=== PATIENT | female | born 1970 | race Caucasian/White ===

== ENCOUNTER 2017-01-09 22:06 | Emergency (ER) | payer OTHER ==
[~2017-01-09] VITALS: Ht 170.2 cm; Wt 93.0 kg
[~2017-01-09 22:06] MED LIST: GABA100C4 PO; HYDR-3111 PO; NAPR500 PO; ZOFR4TAB3 PO
[2017-01-09 22:40] VITALS: BP 95/71; PULSE 70; RESP 18; TEMP 98.4; O2SAT 98
[2017-01-09 23:21] VITALS: BP 95/71; PULSE 70; RESP 18; TEMP 98.4; O2SAT 98
--- NOTE | 2017-01-09 23:39 | PD ---
HPI Chief Complaint: Pain: Acute or Chronic Time Seen by Provider: 23:38 Travel History International Travel<30 days: No Contact w/Intl Traveler<30days: No Traveled to known affect area: No History of Present Illness HPI 46-year-old female presents to the emergency department complaining of low back pain radiating into the right buttock and lower extremity. Patient also complains of urinary frequency urgency and dysuria. No fever no chills no nausea no vomiting no abdominal pain. Patient denies any lower extremity numbness tingling or weakness, denies bladder or bowel dysfunction, and denies saddle anesthesia. Patient denies any specific injury associated with her back pain referred pain to the buttock and lower extremity. Patient states symptoms of present for 2 months. Due to persistent symptoms and no improvement with ibuprofen and due to now associated dysuria decided to come to the emergency room for evaluation. Patient has not followed up with her primary care provider. Patient states approximately 8 months ago she did fall 5 feet off of a ladder and was not evaluated at that time. 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 Patient notes that movement and range of motion worsened symptoms and remaining still provided some symptomatic relief. [facility] Past Medical History Narrative Medical Gastroparesis migraines hysterectomy tubal ligation and D&C. Tobacco use nursing notes reviewed ADD: No Blood Disorders: No Cancer: No Cardiovascular Problems: No Cerebrovascular Accident: No Diabetes: No Diminished Hearing: No Endocrine: No Gastrointestinal Disorders: Yes (GASTROPARESIS) Glaucoma: No Genitourinary: No Hepatitis: No Hiatal Hernia: No Hypertension: No Immune Disorder: No Musculoskeletal: No Neurologic: No Psychiatric: No Reproductive: No Respiratory: No Immunizations Current: Yes Migraines: Yes Myocardial Infarction: No Renal Failure: No Seizures: No Thyroid Disease: No Ulcer: No Tetanus Vaccination: > 5 Years Influenza Vaccination: Yes ?: Not : 4 Para: 4 Dilation and Curettage (D&C): Yes Tubal Ligation: Yes Past Surgical History Abdominal Surgery: Yes AICD: No Cardiac Surgery: No Section: Yes Ear Surgery: No Endocrine Surgery: No Eye Surgery: No Genitourinary Surgery: Yes (BLADDER TUCK) Gynecologic Surgery: Yes ( d and c bladder tuck) Hysterectomy: Yes Joint Replacement: No Oral Surgery: No Pacemaker: No Thoracic Surgery: No Other Surgery: Yes Social History Alcohol Use: Yes (occ) Tobacco Use: No Substance Use: No Allergies-Medications (Allergen,Severity, Reaction): Coded Allergies: *MDRO Multi-Drug Resistant Organism (Unverified Adverse Reaction, Unknown , 01/09/17) MRSA Reported Meds & Prescriptions Reported Meds & Active Scripts Active Lortab (Hydrocodone-Acetaminophen) 5-325 Mg Tab 1 Tab PO Q6H PRN Cipro (Ciprofloxacin HCl) 500 Mg Tab 500 Mg PO BID 7 Days Robaxin (Methocarbamol) 750 Mg Tab 750 Mg PO Q6HR Ibuprofen 800 Mg Tab 800 Mg PO Q8H PRN Review of Systems Except as stated in HPI: all other systems reviewed are Neg General / Constitutional: No: Fever, Chills HENT: No: Congestion Cardiovascular: No: Chest Pain or Discomfort Gastrointestinal: No: Nausea, Vomiting, Abdominal Pain Genitourinary: Positive: Dysuria, Flank Pain Musculoskeletal: Positive: Myalgias, Arthralgias, Pain Skin: No Rash Neurologic: No: Weakness, Dizziness, Paresthesia, Incontinence Psychiatric: No: Anxiety Endocrine: No: Heat Intolerance Hematologic/Lymphatic: No: Easy Bruising Physical Exam Narrative GENERAL: Well-developed well-nourished female in no acute distress no respiratory distress SKIN: Warm and dry. HEAD: Normocephalic. EYES: No scleral icterus. No injection or drainage. NECK: Supple, trachea midline. No JVD or lymphadenopathy. CARDIOVASCULAR: Regular rate and rhythm without murmurs, gallops, or rubs. RESPIRATORY: Breath sounds equal bilaterally. No accessory muscle use. GASTROINTESTINAL: Abdomen soft, non-tender, nondistended. MUSCULOSKELETAL: No cyanosis, or edema. BACK: Nontender without obvious deformity. Tender to palpation over the right SI joint reproduces pain of presentation. DTRs 2+ and symmetric. Sensory exam intact. Motor strength 5 over 5 bilateral lower extremities. Pain is noted with straight leg raising right greater than left. No CVA tenderness. Data Data Last Documented VS Vital Signs Date Time Temp Pulse Resp B/P Pulse Ox O2 Delivery O2 Flow Rate FiO2 01/10/17 02:45 70 18 107/58 98 01/10/17 01:49 Room Air 01/09/17 23:21 98.4 Orders Spine, Lumbar - Ltd (Ap & Lat) (01/09/17 ) Urinalysis - C+S If Indicated (01/09/17 23:38) Dexamethasone Inj (Decadron Inj) (01/09/17 23:45) Orphenadrine Inj (Norflex Inj) (01/09/17 23:45) Urine Culture (01/10/17 00:00) ^ Saline Lock (01/10/17 01:22) Sodium Chlor 0.9% 1000 Ml Inj (Ns 1000 M (01/10/17 01:30) Ceftriaxone Inj (Rocephin Inj) (01/10/17 01:30) Labs Laboratory Tests Test 01/10/17 00:00 Urine Collection Type CLEAN CATCH Urine Color YELLOW Urine Turbidity CLEAR Urine pH 5.0 Urine Specific [place] 1.016 Urine Protein NEG mg/dL Urine Glucose (UA) NEG mg/dL Urine Ketones NEG mg/dL Urine Occult Blood SMALL Urine Nitrite POS Urine Bilirubin NEG Urine Leukocyte Esterase SMALL Urine WBC 3-5 /hpf Urine Squamous Epithelial >8 /hpf Cells Urine Bacteria FEW /hpf Microscopic Urinalysis Comment CULTURE INDICATED MDM Medical Decision Making Medical Screen Exam Complete: Yes Emergency Medical Condition: Yes Medical Record Reviewed: Yes Interpretation(s) Vital Signs Date Time Temp Pulse Resp B/P Pulse Ox O2 Delivery O2 Flow Rate FiO2 01/10/17 00:25 64 18 104/62 96 Room Air 01/09/17 23:25 70 18 01/09/17 23:21 98.4 70 18 95/71 98 01/09/17 22:40 98.4 70 18 95/71 98 Differential Diagnosis Sacroiliitis lumbar disc disease HNP lumbar radiculopathy UTI; no cauda equina Narrative Course Patient given injection of Decadron 10 mg IM along with Norflex 60 mg IM; urine specimen sent for resulting and no previous history of imaging of the lumbar spine plain Limited lumbar series ordered Lumbar spine series identifies multiple layers of degenerative disc disease and chronic changes specifically L1-2 and L5-S1 Urinalysis is abnormal positive nitrites positive white blood cells and bacteria culture indicated Patient identified to have low blood pressure which patient reports has history of low blood pressure however in view of urinary tract infection will administer first dose of antibiotic and administer 1 L normal saline with plan to discharge to home with follow-up with primary care provider this week Diagnosis Primary Impression: Lumbar back pain Qualified Code: M54.41 - Acute right-sided low back pain with right-sided sciatica Additional Impressions: Lumbar disc disease UTI (urinary tract infection) Qualified Code: N30.00 - Acute cystitis without hematuria Referrals: Primary Care Physician 3 days Patient Instructions: General Instructions Departure Forms: Tests/Procedures, Work Release Special Instructions: no work x 2 days Additional Instructions: Increase fluid hydration Complete course of antibiotic as prescribed Take medication as prescribed as needed for low back pain Return to the emergency department for any concerns or change in condition No work 2 days Follow-up with her primary care provider call office on Wednesday for follow-up appointment this week Med/Other Pt SpecificInfo: Prescription(s) given Scripts Hydrocodone-Acetaminophen (Lortab)5-325 Mg Tab1 Tab PO Q6H PRN (PAIN) #10 TAB Ref 0 Prov:Erin Whiteside MD 01/10/17 Ciprofloxacin (Cipro)500 Mg [id number] Mg PO BID 7 Days Ref 0 Prov:Erin Whiteside MD 01/10/17 Methocarbamol (Robaxin)750 Mg [id number] Mg PO Q6HR #12 TAB Ref 0 Prov:Erin Whiteside MD 01/10/17 Ibuprofen 800 Mg [id number] Mg PO Q8H PRN (PAIN GREATER THAN 5) #12 TAB Ref 0 Prov:Erin Whiteside MD 01/10/17 Disposition: 01 DISCHARGE HOME Condition: Stable Erin Whiteside MD Jan 09, 2017 23:39
[2017-01-09] MEDS ORDERED: DEXAMETHASONE SOD PHOS 20 MG/5 ML VIAL IM ONE (23:45)
[2017-01-09] MEDS ORDERED: ORPHENADRINE INJ 60 MG/2 ML AMP IM ONE (23:45)
[2017-01-10 00:25] VITALS: BP 104/62; PULSE 64; RESP 18; O2SAT 96
[2017-01-10 00:28] LABS: BLOOD, URINE SMALL (NEG); GLUCOSE,URINE NEG (NEG); KETONE, URINE NEG (NEG)
--- NOTE | 2017-01-10 00:33 | RADHPO ---
EXAM DATE/TIME: 01/10/2017 00:07 [facility] COMPARISON: No previous studies available for comparison. INDICATIONS : Lumbar spine pain. No known injury. MEDICAL HISTORY : Gastroparesis. SURGICAL HISTORY : Hysterectomy. Tubal ligation. ENCOUNTER: Initial ACUITY: 2 months PAIN SCORE: 8/10 LOCATION: Bilateral lumbar spine FINDINGS: There is retrolisthesis likely related to facet arthritis at L1 on L2 with multilevel degenerative di sc disease and disc space narrowing maximal at L1-L2 and L5-S1. There is no evidence of acute fractur e. Bony mineralization is normal. No spondylolysis is present. CONCLUSION: 1. Moderate degenerative changes as described above. Bradley Mendieta MD on January 10, 2017 at 0:30 Board Certified Radiologist. This report was verified electronically.
[2017-01-10 00:37] LABS: NITRITE,URINE POS (NEG)
[2017-01-10 00:55] LABS: METHOD OF COLLECTION CLEAN CATCH
[2017-01-10 00:56] LABS: URINE COLOR YELLOW (YELLW/STRAW)
[2017-01-10 00:57] LABS: BACTERIA, URINE FEW /hpf; SQUAMOUS EPITHELIAL CELL URINE >8 /hpf (0-5)
[2017-01-10 01:04] LABS: COMMENT (UR) CULTURE INDICATED; CULTURE IF INDICATED CULTURE INDICATED
[2017-01-10] MEDS ORDERED: cefTRIAXone INJ 1,000 MG in SODIUM CHLORIDE 0.9% INJ 100 ML IV ONE (01:30)
[2017-01-10] MEDS ORDERED: SODIUM CHLOR 0.9% 1000 ML INJ 1,000 ML IV ONE (01:30)
[2017-01-10] MEDS ORDERED: IBUP800T23 PO (01:32)
[2017-01-10] MEDS ORDERED: ROBA750T PO (01:32)
[2017-01-10] MEDS ORDERED: CIPR-9 PO (01:32)
[2017-01-10 01:49] VITALS: BP 105/69; PULSE 66; RESP 18; O2SAT 97
[2017-01-10] MEDS ORDERED: HYDR-3533 PO (02:11)
[2017-01-10 02:45] VITALS: BP 107/58
== END 2017-01-10 02:49 | disposition home or self-care (01) ==
LOC: PHED 22:06
DX: M54.41 Lumbago with sciatica, right side (principal); M51.36 Other intervertebral disc degeneration, lumbar region; N30.00 Acute cystitis without hematuria; Z87.19 Personal history of other diseases of the digestive system; Z86.69 Personal history of other diseases of the nervous system and sense organs
CPT/HCPCS: 72100; 81001; 87086; 96361; 96372; 96374; 99284; J0696; J1100; J2360; J7030

== ENCOUNTER 2017-08-22 14:43 | Emergency (ER) | payer OTHER ==
[~2017-08-22] VITALS: Ht 170.2 cm; Wt 96.2 kg
[~2017-08-22 14:43] MED LIST changes: +CIPR-9 PO; -GABA100C4 PO; -HYDR-3111 PO; +HYDR-3533 PO; +IBUP1TAB7 PO; -NAPR500 PO; +ROBA750T PO; -ZOFR4TAB3 PO
[2017-08-22 15:19] VITALS: BP 108/57; PULSE 74; RESP 16; TEMP 98.1; O2SAT 97
[2017-08-22] MEDS ORDERED: CYCL5TAB PO (17:28)
[2017-08-22] MEDS ORDERED: IBUP1TAB7 PO (17:28)
[2017-08-22] MEDS ORDERED: ORPHENADRINE INJ 60 MG/2 ML AMP IM ONE (17:30)
[2017-08-22] MEDS ORDERED: KETOROLAC TROMETHAMINE 60 MG/2 ML (IM) VIAL IM ONE (17:30)
--- NOTE | 2017-08-22 17:33 | PD ---
HPI Chief Complaint: Back/ Neck Pain or Injury Time Seen by Provider: 17:08 Travel History International Travel<30 days: No Contact w/Intl Traveler<30days: No Traveled to known affect area: No History of Present Illness HPI 46-year-old female with history of low back pain presents to the emergency room for the same. Denies any specific trauma or injury. States it started 2 days ago and became excruciating today when she woke up. She has been taking Robaxin without any relief in symptoms. 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 No IV drug use, fever, chills, nausea, vomiting, or weight loss. No saddle anesthesia, loss of bowel or bladder control, or lower extremity paresthesias. She had back surgery in 2003. PFSH Past Medical History ADD: No Blood Disorders: No Cancer: No Cardiovascular Problems: No Cerebrovascular Accident: No Diabetes: No Diminished Hearing: No Endocrine: No Gastrointestinal Disorders: Yes (GASTROPARESIS) Glaucoma: No Genitourinary: No Hepatitis: No Hiatal Hernia: No Hypertension: No Immune Disorder: No Musculoskeletal: No Neurologic: No Psychiatric: No Reproductive: No Respiratory: No Immunizations Current: Yes Migraines: Yes Myocardial Infarction: No Renal Failure: No Seizures: No Thyroid Disease: No Ulcer: No ?: Not : 4 Para: 4 Dilation and Curettage (D&C): Yes Tubal Ligation: Yes Past Surgical History Abdominal Surgery: Yes AICD: No Cardiac Surgery: No Section: Yes Ear Surgery: No Endocrine Surgery: No Eye Surgery: No Genitourinary Surgery: Yes (BLADDER TUCK) Gynecologic Surgery: Yes ( d and c bladder tuck) Hysterectomy: Yes Joint Replacement: No Oral Surgery: No Pacemaker: No Thoracic Surgery: No Other Surgery: Yes Social History Alcohol Use: Yes (occ) Tobacco Use: No Substance Use: No Allergies-Medications (Allergen,Severity, Reaction): Coded Allergies: *MDRO Multi-Drug Resistant Organism (Unverified Adverse Reaction, Unknown , 08/22/17) MRSA Reported Meds & Prescriptions Reported Meds & Active Scripts Active Ibuprofen 800 Mg Tab 800 Mg PO Q8H PRN Flexeril (Cyclobenzaprine HCl) 5 Mg Tab 5 Mg PO TID Review of Systems Except as stated in HPI: all other systems reviewed are Neg Physical Exam Narrative GENERAL: Well-nourished, well-developed female in no acute distress. Afebrile. Ambulatory. SKIN: Focused skin assessment warm/dry. HEAD: Normocephalic. EYES: No scleral icterus. No injection or drainage. NECK: Supple, trachea midline. No JVD or lymphadenopathy. CARDIOVASCULAR: Regular rate and rhythm without murmurs, gallops, or rubs. RESPIRATORY: Breath sounds equal bilaterally. No accessory muscle use. BACK: Tenderness to palpation of the middle lower spine and the right lumbar region. No obvious deformity. No CVA tenderness. Data Data Last Documented VS Vital Signs Date Time Temp Pulse Resp B/P (MAP) Pulse Ox O2 Delivery O2 Flow Rate FiO2 08/22/17 15:19 98.1 74 16 108/57 (74) 97 Orders Orders Ketorolac Inj (Toradol Inj) (08/22/17 17:30) Orphenadrine Inj (Norflex Inj) (08/22/17 17:30) MDM Medical Decision Making Medical Screen Exam Complete: Yes Emergency Medical Condition: Yes Medical Record Reviewed: Yes Differential Diagnosis Strain, sprain, fracture, dislocation Narrative Course 46-year-old female with history of low back pain presents to the emergency room for evaluation of the same. Denies trauma or injury. No focal neurologic deficits. No midline tenderness. She is ambulatory. No red flag symptoms. No indication for emergent imaging at this time. She was given Toradol and Norflex in the emergency room discharged with prescriptions for Flexeril and ibuprofen. Told to follow up with a primary care physician or return for worsening symptoms. She understands and agrees to plan. Diagnosis Primary Impression: Lumbar back pain Referrals: Primary Care Physician Additional Instructions: Rest and drink plenty of fluids. Take Flexeril as directed, as needed for pain. Take ibuprofen with food as directed, as needed for pain. Apply ice to the affected area for 20 minutes at a time, as needed for pain and swelling. Follow-up with a primary care physician. Return to the emergency room for worsening symptoms. Med/Other Pt SpecificInfo: Prescription(s) given Scripts Ibuprofen (Ibuprofen) 800 Mg Tab 800 MG PO Q8H Y for Pain/Inflammation, #21 TAB 0 Refills Prov: Fernando Law MD 08/22/17 Cyclobenzaprine (Flexeril) 5 Mg Tab 5 MG PO TID for Muscle Spasm, #15 TAB 0 Refills Prov: Fernando Law MD 08/22/17 Disposition: 01 DISCHARGE HOME Condition: Stable Lizz Askew Aug 22, 2017 17:32
== END 2017-08-22 17:43 | disposition home or self-care (01) ==
LOC: PHED 14:43 → PHEFT 17:43
DX: M54.5 Low back pain (principal)
CPT/HCPCS: 96372; 99284; J1885; J2360

== ENCOUNTER 2018-02-14 17:55 | Emergency (ER) | payer OTHER ==
[~2018-02-14 17:55] MED LIST changes: -CIPR-9 PO; +CYCL5TAB PO; -HYDR-3533 PO; -ROBA750T PO
[2018-02-14 18:14] VITALS: BP 118/65; PULSE 86; RESP 18; TEMP 98.4
--- NOTE | 2018-02-14 18:44 | PD ---
HPI Chief Complaint: Neuro Symptoms/ Deficits Time Seen by Provider: 18:36 Travel History International Travel<30 days: No Contact w/Intl Traveler<30days: No Traveled to known affect area: No History of Present Illness HPI 47yo F with no PMH presents to the ED with c/o lower back pain since this morning at 1am. Said pain is lower back and goes across her back. Pain is worst with movement. +Increased urinary frequency. Pt also complains of left facial heaviness and numbness for a few hours. Denies any history of stroke. Denies any fever, chest pain, sob, n/v, abdominal pain, focal weakness or numbness in arms or legs, trauma, IVDA. PFSH Past Medical History ADD: No Blood Disorders: No Cancer: No Cardiovascular Problems: No Cerebrovascular Accident: No Diabetes: No Diminished Hearing: No Endocrine: No Gastrointestinal Disorders: Yes (GASTROPARESIS) Glaucoma: No Genitourinary: No Hepatitis: No Hiatal Hernia: No Hypertension: No Immune Disorder: No Musculoskeletal: No Neurologic: No Psychiatric: No Reproductive: No Respiratory: No Immunizations Current: Yes Migraines: Yes Myocardial Infarction: No Renal Failure: No Seizures: No Thyroid Disease: No Ulcer: No Tetanus Vaccination: < 5 Years Influenza Vaccination: Yes ?: Not : 4 Para: 4 Dilation and Curettage (D&C): Yes Tubal Ligation: Yes Past Surgical History Abdominal Surgery: Yes AICD: No Cardiac Surgery: No Section: Yes Ear Surgery: No Endocrine Surgery: No Eye Surgery: No Genitourinary Surgery: Yes (BLADDER TUCK) Gynecologic Surgery: Yes ( d and c bladder tuck) Hysterectomy: Yes Joint Replacement: No Oral Surgery: No Pacemaker: No Thoracic Surgery: No Other Surgery: Yes Social History Alcohol Use: Yes (occ) Tobacco Use: No Substance Use: No Allergies-Medications (Allergen,Severity, Reaction): Coded Allergies: *MDRO Multi-Drug Resistant Organism (Unverified Adverse Reaction, Unknown , 02/14/18) MRSA Reported Meds & Prescriptions Reported Meds & Active Scripts Active Medrol Dosepak (Methylprednisolone) 4 Mg Dspk 4 Mg PO DIRECTED Per Pharmacist direction Robaxin (Methocarbamol) 500 Mg Tab 500 Mg PO TID 7 Days Review of Systems Except as stated in HPI: all other systems reviewed are Neg Physical Exam Narrative GENERAL: 47yo F in mild distress. SKIN: Focused skin assessment warm/dry. HEAD: Atraumatic. Normocephalic. EYES: Pupils equal and round. No scleral icterus. No injection or drainage. ENT: No nasal bleeding or discharge. Mucous membranes pink and moist. NECK: Trachea midline. No JVD. CARDIOVASCULAR: Regular rate and rhythm. No murmur appreciated. RESPIRATORY: No accessory muscle use. Clear to auscultation. Breath sounds equal bilaterally. GASTROINTESTINAL: Abdomen soft, non-tender, nondistended. BACK: No step off. TTP lower lumbar area diffusely. MUSCULOSKELETAL: No obvious deformities. No clubbing. No cyanosis. No edema. NEUROLOGICAL: Awake and alert. Decreased sensation left V1-V3 distribution. No facial droop. Able to lift bilateral eyebrow equally. Motor grossly within normal limits. Normal speech. PSYCHIATRIC: Appropriate mood and affect; insight and judgment normal. Data Data Last Documented VS Vital Signs Date Time Temp Pulse Resp B/P (MAP) Pulse Ox O2 Delivery O2 Flow Rate FiO2 02/14/18 22:13 98.2 85 16 123/85 (98) 100 02/14/18 20:27 Room Air Orders Orders Ct Brain W/O Iv Contrast(Rout) (02/14/18 ) Complete Blood Count With Diff (02/14/18 18:36) Basic Metabolic Panel (Bmp) (02/14/18 18:36) Prothrombin Time / Inr (Pt) (02/14/18 18:36) Act Partial Throm Time (Ptt) (02/14/18 18:36) Ketorolac Inj (Toradol Inj) (02/14/18 18:45) Diazepam (Valium) (02/14/18 18:45) Urinalysis - C+S If Indicated (02/14/18 18:44) Mri Brain W/O Contrast (02/14/18 ) Ketorolac Inj (Toradol Inj) (02/14/18 20:15) Morphine Inj (Morphine Inj) (02/14/18 21:30) Ondansetron Odt (Zofran Odt) (02/14/18 21:30) Ed Discharge Order (02/14/18 21:29) Labs Laboratory Tests Test 02/14/18 19:21 02/14/18 20:25 White Blood Count 8.2 TH/MM3 Red Blood Count 5.17 MIL/MM3 Hemoglobin 14.3 GM/DL Hematocrit 41.9 % Mean Corpuscular Volume 81.1 FL Mean Corpuscular Hemoglobin 27.7 PG Mean Corpuscular Hemoglobin Concent 34.2 % Red Cell Distribution Width 12.2 % Platelet Count 291 TH/MM3 Mean Platelet Volume 8.0 FL Neutrophils (%) (Auto) 63.3 % Lymphocytes (%) (Auto) 26.8 % Monocytes (%) (Auto) 5.8 % Eosinophils (%) (Auto) 3.6 % Basophils (%) (Auto) 0.5 % Neutrophils # (Auto) 5.2 TH/MM3 Lymphocytes # (Auto) 2.2 TH/MM3 Monocytes # (Auto) 0.5 TH/MM3 Eosinophils # (Auto) 0.3 TH/MM3 Basophils # (Auto) 0.0 TH/MM3 CBC Comment DIFF FINAL Differential Comment Prothrombin Time 9.6 SEC Prothromb Time International Ratio 0.9 RATIO Activated Partial Thromboplast Time 25.4 SEC Blood Urea Nitrogen 15 MG/DL Creatinine 0.76 MG/DL Random Glucose 96 MG/DL Calcium Level 9.4 MG/DL Sodium Level 140 MEQ/L Potassium Level 3.9 MEQ/L Chloride Level 103 MEQ/L Carbon Dioxide Level 33.6 MEQ/L Anion Gap 3 MEQ/L Estimat Glomerular Filtration Rate 82 ML/MIN Urine Color YELLOW Urine Turbidity CLEAR Urine pH 6.5 Urine Specific [place] 1.010 Urine Protein NEG mg/dL Urine Glucose (UA) NEG mg/dL Urine Ketones NEG mg/dL Urine Occult Blood TRACE Urine Nitrite NEG Urine Bilirubin NEG Urine Urobilinogen 0.2 MG/DL Urine Leukocyte Esterase TRACE Urine RBC 0-3 /hpf Urine WBC 0-2 /hpf Urine Squamous Epithelial Cells 0-5 /hpf Microscopic Urinalysis Comment CULT NOT INDICATED MDM Medical Decision Making Medical Screen Exam Complete: Yes Emergency Medical Condition: Yes Differential Diagnosis Lacunar infarct vs. musculoskeletal pain vs. muscle sprain Narrative Course 47yo F with lower back pain that seems very musculoskeletal. Pt given valium for pain. No traum, no weakness or numbness in legs. Pt also with left facial numbness and heaviness so will do CT brain, labs for possible lacunar infarct. Sign out to next team to follow up and reevaluate. Likely would need MRI brain to r/o CVA if CT scan negative. Pt also with urinary complaints so UA ordered. Pt given valium for back pain. Diagnosis Primary Impression: Lumbar back pain Additional Impression: Left facial numbness Scripts Methylprednisolone Dosepak (Medrol Dosepak) 4 Mg Dspk 4 MG PO DIRECTED, #1 DSPK 0 Refills Per Pharmacist direction Prov: Freddy Hooker MD 02/14/18 Methocarbamol (Robaxin) 500 Mg Tab 500 MG PO TID for Muscle Spasm for 7 Days, TAB 0 Refills Prov: Freddy Hooker MD 02/14/18 Kori Bauer DO February 14, 2018 18:44
[2018-02-14] MEDS ORDERED: KETOROLAC TROMETHAMINE 60 MG/2 ML (IM) VIAL IM ONE (18:45)
[2018-02-14] MEDS ORDERED: DIAZEPAM 5 MG TAB PO ONE (18:45)
--- NOTE | 2018-02-14 19:02 | RADRPT ---
EXAM DATE/TIME: 02/14/2018 18:44 [facility] COMPARISON: No previous studies available for comparison. INDICATIONS : Left sided facial numbness. RADIATION DOSE: 49.99 CTDIvol (mGy) MEDICAL HISTORY : None SURGICAL HISTORY : section. Hysterectomy.Bladder tuck. Orthopedic surgery. ENCOUNTER: Initial ACUITY: 1 day PAIN SCALE: 5/10 LOCATION: Left cranial TECHNIQUE: Multiple contiguous axial images were obtained of the head. Using automated exposure control and adj ustment of the mA and/or kV according to patient size, radiation dose was kept as low as reasonably a chievable to obtain optimal diagnostic quality images. DICOM format image data is available electro nically for review and comparison. FINDINGS: CEREBRUM: The ventricles are normal for age. No evidence of midline shift, mass lesion, hemorrhage or acute in farction. No extra-axial fluid collections are seen. POSTERIOR FOSSA: The cerebellum and brainstem are intact. The 4th ventricle is midline. The cerebellopontine angle i s unremarkable. EXTRACRANIAL: The visualized portion of the orbits is intact. SKULL: The calvaria is intact. No evidence of skull fracture. CONCLUSION: Normal examination. Julio Cornejo Jr., MD on February 14, 2018 at 18:55 Board Certified Radiologist. This report was verified electronically.
--- NOTE | 2018-02-14 19:04 | PD ---
Physical Exam Date Seen by Provider: February 14, 2018 Time Seen by Provider: 19:02 Narrative The patient is a 47-year-old female who was initially evaluated by the previous physician. Please refer to the initial history, physical, diagnostic evaluation , and treatment modality plan. The patient was signed out at [address] of the brain pending for possible CVA for left sided facial heaviness and numbness. The patient had no other neurologic deficits at that time. The patient also had lower back pain and urinary symptoms. Data Data Last Documented VS Vital Signs Date Time Temp Pulse Resp B/P (MAP) Pulse Ox O2 Delivery O2 Flow Rate FiO2 02/14/18 20:27 75 16 120/75 (90) 100 Room Air 02/14/18 18:[address] Brain W/O Iv Contrast(Rout) (02/14/18 ) Complete Blood Count With Diff (02/14/18 18:36) Basic Metabolic Panel (Bmp) (02/14/18 18:36) Prothrombin Time / Inr (Pt) (02/14/18 18:36) Act Partial Throm Time (Ptt) (02/14/18 18:36) Ketorolac Inj (Toradol Inj) (02/14/18 18:45) Diazepam (Valium) (02/14/18 18:45) Urinalysis - C+S If Indicated (02/14/18 18:44) Mri Brain W/O Contrast (02/14/18 ) Ketorolac Inj (Toradol Inj) (02/14/18 20:15) Labs Laboratory Tests Test 02/14/18 19:21 02/14/18 20:25 White Blood Count 8.2 TH/MM3 Red Blood Count 5.17 MIL/MM3 Hemoglobin 14.3 GM/DL Hematocrit 41.9 % Mean Corpuscular Volume 81.1 FL Mean Corpuscular Hemoglobin 27.7 PG Mean Corpuscular Hemoglobin Concent 34.2 % Red Cell Distribution Width 12.2 % Platelet Count 291 TH/MM3 Mean Platelet Volume 8.0 FL Neutrophils (%) (Auto) 63.3 % Lymphocytes (%) (Auto) 26.8 % Monocytes (%) (Auto) 5.8 % Eosinophils (%) (Auto) 3.6 % Basophils (%) (Auto) 0.5 % Neutrophils # (Auto) 5.2 TH/MM3 Lymphocytes # (Auto) 2.2 TH/MM3 Monocytes # (Auto) 0.5 TH/MM3 Eosinophils # (Auto) 0.3 TH/MM3 Basophils # (Auto) 0.0 TH/MM3 CBC Comment DIFF FINAL Differential Comment Prothrombin Time 9.6 SEC Prothromb Time International Ratio 0.9 RATIO Activated Partial Thromboplast Time 25.4 SEC Blood Urea Nitrogen 15 MG/DL Creatinine 0.76 MG/DL Random Glucose 96 MG/DL Calcium Level 9.4 MG/DL Sodium Level 140 MEQ/L Potassium Level 3.9 MEQ/L Chloride Level 103 MEQ/L Carbon Dioxide Level 33.6 MEQ/L Anion Gap 3 MEQ/L Estimat Glomerular Filtration Rate 82 ML/MIN Urine Color YELLOW Urine Turbidity CLEAR Urine pH 6.5 Urine Specific [place] 1.010 Urine Protein NEG mg/dL Urine Glucose (UA) NEG mg/dL Urine Ketones NEG mg/dL Urine Occult Blood TRACE Urine Nitrite NEG Urine Bilirubin NEG Urine Urobilinogen 0.2 MG/DL Urine Leukocyte Esterase TRACE Urine RBC 0-3 /hpf Urine WBC 0-2 /hpf Urine Squamous Epithelial Cells 0-5 /hpf Microscopic Urinalysis Comment CULT NOT INDICATED [facility] Medical Record Reviewed: Yes Supervised Visit with [facility]: No Interpretation(s) Laboratory Tests Test 02/14/18 19:21 02/14/18 20:25 White Blood Count 8.2 TH/MM3 Red Blood Count 5.17 MIL/MM3 Hemoglobin 14.3 GM/DL Hematocrit 41.9 % Mean Corpuscular Volume 81.1 FL Mean Corpuscular Hemoglobin 27.7 PG Mean Corpuscular Hemoglobin Concent 34.2 % Red Cell Distribution Width 12.2 % Platelet Count 291 TH/MM3 Mean Platelet Volume 8.0 FL Neutrophils (%) (Auto) 63.3 % Lymphocytes (%) (Auto) 26.8 % Monocytes (%) (Auto) 5.8 % Eosinophils (%) (Auto) 3.6 % Basophils (%) (Auto) 0.5 % Neutrophils # (Auto) 5.2 TH/MM3 Lymphocytes # (Auto) 2.2 TH/MM3 Monocytes # (Auto) 0.5 TH/MM3 Eosinophils # (Auto) 0.3 TH/MM3 Basophils # (Auto) 0.0 TH/MM3 CBC Comment DIFF FINAL Differential Comment Prothrombin Time 9.6 SEC Prothromb Time International Ratio 0.9 RATIO Activated Partial Thromboplast Time 25.4 SEC Blood Urea Nitrogen 15 MG/DL Creatinine 0.76 MG/DL Random Glucose 96 MG/DL Calcium Level 9.4 MG/DL Sodium Level 140 MEQ/L Potassium Level 3.9 MEQ/L Chloride Level 103 MEQ/L Carbon Dioxide Level 33.6 MEQ/L Anion Gap 3 MEQ/L Estimat Glomerular Filtration Rate 82 ML/MIN Urine Color YELLOW Urine Turbidity CLEAR Urine pH 6.5 Urine Specific [place] 1.010 Urine Protein NEG mg/dL Urine Glucose (UA) NEG mg/dL Urine Ketones NEG mg/dL Urine Occult Blood TRACE Urine Nitrite NEG Urine Bilirubin NEG Urine Urobilinogen 0.2 MG/DL Urine Leukocyte Esterase TRACE Urine RBC 0-3 /hpf Urine WBC 0-2 /hpf Urine Squamous Epithelial Cells 0-5 /hpf Microscopic Urinalysis Comment CULT NOT INDICATED Last Impressions Head CT 02/14/18 0000 Signed Impressions: Service Date/Time: Wednesday, February 14, 2018 18:44 - CONCLUSION: Normal examination. Julio Cornejo Jr., MD Brain MRI 02/14/18 0000 Signed Impressions: Service Date/Time: Wednesday, February 14, 2018 20:46 - CONCLUSION: Normal examination. Julio Cornejo Jr., MD Differential Diagnosis Differential diagnosis includes Vann's palsy, CVA, TIA, MS, electrolyte abnormality, low back pain, UTI, musculoskeletal pain, spinal stenosis, herniated disc. Narrative Course The patient is a 47-year-old female who was initially evaluated by the previous physician. Please refer to the initial history, physical, diagnostic evaluation , and treatment modality plan. The patient was signed out at [address] the brain pending for possible CVA for facial numbness and heaviness. CT the brain was negative, therefore, MRI of the brain was ordered to rule out CVA. Labs are unremarkable. UA was negative. MRI is negative. The patient was reassessed, continues to have pain. Therefore, patient was administer morphine and Zofran. The patient be discharged home on a Medrol Dosepak and Robaxin. The patient is advised to follow-up with a primary physician. Return if symptoms worsen or progress. Diagnosis Primary Impression: Left facial numbness Additional Impression: Lumbar disc disease Patient Instructions: General Instructions, Narcotic given in the ED Additional Instruction: Medications as directed. Follow-up with your primary physician. Return if symptoms worsen or progress. Med/Other Pt SpecificInfo: Prescription(s) given Scripts Methylprednisolone Dosepak (Medrol Dosepak) 4 Mg Dspk 4 MG PO DIRECTED, #1 DSPK 0 Refills Per Pharmacist direction Prov: Freddy Hooker MD 02/14/18 Methocarbamol (Robaxin) 500 Mg Tab 500 MG PO TID for Muscle Spasm for 7 Days, TAB 0 Refills Prov: Freddy Hooker MD 02/14/18 Disposition: 01 DISCHARGE HOME Condition: Stable Freddy Hooker MD February 14, 2018 19:04
[2018-02-14 19:31] LABS: AUTOMATED NEUTROPHIL # 5.2 TH/MM3 (1.8-7.7); BASOPHIL % 0.5 % (0.0-2.0); EOSINOPHIL # 0.3 TH/MM3 (0-0.4); EOSINOPHIL % 3.6 % (0.0-4.0); HEMATOCRIT 41.9 % (35.0-46.0); HEMOGLOBIN 14.3 GM/DL (11.6-15.3); LYMPH % 26.8 % (9.0-44.0); LYMPHOCYTE # 2.2 TH/MM3 (1.0-4.8); MEAN CELL VOLUME 81.1 FL (80.0-100.0); MEAN CORPUSCULAR HEMOGLOBIN 27.7 PG (27.0-34.0); MEAN CORPUSCULAR HGB CONC 34.2 % (32.0-36.0); MONO % 5.8 % (0.0-8.0); MONOCYTE # 0.5 TH/MM3 (0-0.9); NEUT % 63.3 % (16.0-70.0); PLATELET COUNT 291 TH/MM3 (150-450); RED BLOOD COUNT 5.17 MIL/MM3 (4.00-5.30); RED CELL DISTRIBUTION WIDTH 12.2 % (11.6-17.2); WHITE BLOOD COUNT 8.2 TH/MM3 (4.0-11.0)
[2018-02-14 19:41] LABS: CALCIUM 9.4 MG/DL (8.5-10.1)
[2018-02-14 19:42] LABS: BICARBONATE 33.6 MEQ/L (21.0-32.0)
[2018-02-14 19:44] LABS: INTERNATIONAL NORMALIZED RATIO 0.9 RATIO; PROTHROMBIN TIME - PATIENT 9.6 SEC (9.8-11.6)
[2018-02-14 19:45] LABS: CREATININE 0.76 MG/DL (0.50-1.00)
[2018-02-14] MEDS ORDERED: KETOROLAC TROMETHAMINE 30 MG/ML (IVP) VIAL IV PUSH ONE (20:15)
[2018-02-14 20:27] VITALS: BP 120/75; PULSE 75; RESP 16; O2SAT 100
[2018-02-14 20:31] LABS: BILIRUBIN, URINE NEG (NEG); BLOOD, URINE TRACE (NEG); GLUCOSE,URINE NEG (NEG); KETONE, URINE NEG (NEG); NITRITE,URINE NEG (NEG); PH, URINE 6.5 (5.0-8.5); URINE COLOR YELLOW (YELLW/STRAW); URINE LEUKOCYTE ESTERASE TRACE (NEG)
[2018-02-14 20:37] LABS: RBC, URINE 0-3 /hpf (0-3); WBC, URINE 0-2 /hpf (0-5)
[2018-02-14 20:38] LABS: SQUAMOUS EPITHELIAL CELL URINE 0-5 /hpf (0-5)
--- NOTE | 2018-02-14 21:04 | RADRPT ---
EXAM DATE/TIME: 02/14/2018 20:46 [facility] COMPARISON: CT BRAIN W/O CONTRAST, February 14, 2018, 18:44. INDICATIONS : Left facial numbness. MEDICAL HISTORY : None. SURGICAL HISTORY : Hysterectomy. Discectomy, lumbar. Bladder sling. ENCOUNTER: Initial ACUITY: 1 day PAIN SCORE: 0/10 LOCATION: cranial TECHNIQUE: Multiplanar, multisequence MRI of the brain was performed without contrast. FINDINGS: CEREBRUM: The ventricles are normal for age. No evidence of midline shift, mass lesion, hemorrhage or acute in farction. No extraaxial fluid collections are seen. The pituitary gland and suprasellar cistern are normal in configuration. WHITE MATTER: No significant signal abnormalities are seen in the white matter. POSTERIOR FOSSA: The cerebellum and brainstem are intact. The 4th ventricle is midline. The cerebellopontine angle is unremarkable. The cerebellar tonsils are normal in position. DIFFUSION IMAGING: No focal areas of restricted diffusion are seen. No evidence of acute infarction. EXTRACRANIAL: The visualized portions of the orbits and paranasal sinuses are unremarkable. CONCLUSION: Normal examination. Julio Cornejo Jr., MD on February 14, 2018 at 21:00 Board Certified Radiologist. This report was verified electronically.
[2018-02-14] MEDS ORDERED: ROBA500T PO (21:27)
[2018-02-14] MEDS ORDERED: MEDR4PAK PO (21:27)
[2018-02-14] MEDS ORDERED: MORPHINE SULFATE 4 MG/ML INJ IV PUSH ONE (21:30)
[2018-02-14] MEDS ORDERED: ONDANSETRON ODT 4 MG TAB PO ONE (21:30)
[2018-02-14 22:13] VITALS: BP 123/85; TEMP 98.2
== END 2018-02-14 22:15 | disposition home or self-care (01) ==
LOC: PHED 17:55
DX: M54.5 Low back pain (principal); R20.0 Anesthesia of skin
CPT/HCPCS: 70450; 70551; 80048; 81001; 85025; 85610; 85730; 96374; 96375; 99285; J1885; J2270